=== PATIENT | male | born 1955 | race Caucasian/White ===

== ENCOUNTER → 2016-11-13 | Day surgery (SDC) | payer OTHER ==
[~2016-11-13] VITALS: Ht 162.6 cm; Wt 90.6 kg
[~2016-11-13] MED LIST: ATARAX25 MG PO; CPAP INH; LASIX40 MG PO; OXYGEN M-15 INH; TYLENOL WITH C1 EACH PO; VASOTEC5 MG PO
--- NOTE | ~2016-11-13 | OR ---
PATIENT'S NAME: [facility] AGE: 61 Y [address] ROOM: [place] [address] LOCATION: [facility] [place] ADMIT DATE: 11/13/2016 OR/Procedure Report DISCHARGE DATE: FAMILY PHYSICIAN: Benny Presley MD ATTENDING PHYSICIAN: Jermaine Washington V SURGEON: Jermaine Washington MD BAND STRAIGHTENER: MICHELLE Arboleda. DATE OF PROCEDURE: 11/13/2016 PREOPERATIVE DIAGNOSIS: Basal cell carcinoma, right upper lid. POSTOPERATIVE DIAGNOSIS: Basal cell carcinoma, right upper lid. OPERATION/PROCEDURE: Excision of 4.5 x 2 cm basal cell carcinoma, right upper lid, with placement of split thickness skin graft. ANESTHESIA: Local with sedation. ESTIMATED BLOOD LOSS: Minimal. COMPLICATIONS: None. DESCRIPTION OF PROCEDURE: The patient was taken to the operating room, laid in supine position. He was placed under IV sedation. Head was placed in upright position. The patient had a large approximately 1.5 to 2 cm basal cell carcinoma of the right upper lateral eyelid with extension into the right upper brow. A proposed incision line was marked and infiltrated with 1% lidocaine with epinephrine solution. Approximately 2 cm circumferential skin incision was performed using #15 blade. Subcutaneous tissues were divided using #15 blade. The incision was extended into the upper fat. The tarsal plate was not involved. The subcutaneous tissues were divided using #15 blade. Specimen was marked and sent for frozen section pathology. The frozen section pathology revealed basal cell carcinoma, all margins were clear. Skin edges were undermined. A tacking suture was placed in the middle of the incision approximately in the lid skin to the upper eyebrow. The patient was noted to have significant elevation of the lid with inability for eye closure. The incision was extended laterally as well as medially into an ellipse approximately for a total length of 4.5 cm. This was infiltrated with 1% lidocaine with epinephrine solution. The skin incision was then extended medially. A portion of the upper eyelid skin was removed, thinned, and placed on the back table. The incision was carried laterally slightly removing a small Burow's triangle. This was removed and discarded. The lower curve of medial eyelid skin and upper brow skin were then undermined and reapproximated with interrupted 6-0 Ethilon suture. The aforementioned Burow's triangle of skin, that was removed medially, was then placed in the midline, fashioned, PATIENT'S NAME: [facility] AGE: 61 Y [address] ROOM: [place] [address] LOCATION: [facility] [place] ADMIT DATE: 11/13/2016 OR/Procedure Report DISCHARGE DATE: FAMILY PHYSICIAN: Benny Presley MD ATTENDING PHYSICIAN: Jermaine Washington V and partial thickness skin graft was placed over the previous defect. This was sutured in place using 6-0 Ethilon. This allowed for a closure of the eyelid. The remaining lateral portion of the eyelid was closed with interrupted 6-0 Ethilon. The patient tolerated the procedure well. Neosporin ointment was applied. The patient was aroused and discharged from the operating room to recovery room in satisfactory condition. JERMAINE WASHINGTON MD TVC/modl /[id number] d: 11/13/16 1801 t: 11/20/16 0720, OPERATIVE SUMMARY
--- NOTE | 2016-11-13 13:12 | NUR ---
LATE ENTRY 1111 DISMISSAL CRITERIA MET AND PATIENT IS DISCHARGED TO HOME. ASSISTED TO AWAITING CAR VIA WHEEL CHAIR AND IS ACCOMPANIED BY STAFF NURSE AND .
== END | disposition disaster alternative care site (69) ==
LOC: GPOC 11-08 09:00 → GSDC 11-08 09:00
PROC: 08R Eye, Replacement (ICD-10-PCS; principal; 2016-11-13)
DX: C44.112 Basal cell carcinoma of skin of right eyelid, including canthus (principal); E78.00 Pure hypercholesterolemia, unspecified; G47.33 Obstructive sleep apnea (adult) (pediatric); I11.0 Hypertensive heart disease with heart failure; I50.30 Unspecified diastolic (congestive) heart failure; E66.09 Other obesity due to excess calories; Z68.35 Body mass index [BMI] 35.0-35.9, adult; M19.90 Unspecified osteoarthritis, unspecified site; Z98.890 Other specified postprocedural states
CPT/HCPCS: J7120